=== PATIENT | female | born 1995 | race American Indian/Alaskan Native ===

== ENCOUNTER 2016-12-21 15:22 | Emergency (ER) | payer SELFPAY ==
--- NOTE | 2016-12-21 16:32 | Emergency Department Report ---
Entered by SHELLEY REYES, acting as scribe for ALEJO HILLIARD PA. Chief Complaint: Chest Pain Stated Complaint: CHEST PAIN/PAIN WHEN INHALING Time Seen by Provider: 12/21/16 15:57 - HPI History of Present Illness: Pt c/o tight, 7/10 chest pain that began this morning. Patient states she woke with chest pain, and associated sob and headache this morning. Aggravated with deep breaths and alleviated with remaining still. Notes she has back pain with deep breaths. Denies taking any medication for pain. Denies fever, chills, nausea, and vomiting. Denies abdominal pain. LMP 12/05/2016. Denies a chance of . Denies taking control. Denies Hx of DVT, PE, asthma, and heart disease. Denies FHx of DVT and PE. Denies any recent surgery or long recent travel - ROS Review of Systems: All system are negative unless stated in HPI above. - Exam Vital Signs: Vital Signs 12/21/16 15:46 Temperature 99.4 F Pulse Rate 65 Respiratory 16 Rate Blood Pressure 115/68 O2 Sat by Pulse 100 Oximetry Physical Exam: General: well nourished, well developed, 21 year old female in no acute distress and nontoxic in appearance Lungs: Clear to auscultation bilaterally, no rhonchi, wheezes, or rales. Normal work of breathing. No use of accessory muscles Extremities: No CCE. +2 pulses. No neurovascular compromise. No lower extremity pain or swelling. No calf swelling noted. Chest/Cardiovascular: No chest wall deformity. S1-S2, regular rate, regular rhythm. No murmurs. MSE screening note: Focused history and physical exam performed. Due to findings the following was ordered: see below ED Medical Decision Making - Medical Decision Making MDM: Patient screened by provider in triage area. Appropriate protocol initiated. Patient to be seen by MD on main ED side. ED Disposition for MSE Condition: Stable This documentation as recorded by the scribe,SHELLEY REYES,accurately reflects the service I personally performed and the decisions made by ,ALEJO HILLIARD PA.
[2016-12-21 16:57] LABS: Eosinophils % (Auto) 1.3 % (0.0-4.3); Hematocrit 35.2 % (30.3-42.9); Hemoglobin 11.8 gm/dl (10.1-14.3); Mean Corpuscular HGB Conc 33 % (30-34); Mean Corpuscular Volume 76 fl (79-97); Platelet Count 205 K/mm3 (140-440); Red Blood Count 4.62 M/mm3 (3.65-5.03); Red Cell Distribution Width 15.4 % (13.2-15.2); White Blood Count 9.6 K/mm3 (4.5-11.0)
[2016-12-21 16:58] LABS: Mean Corpuscular Hemoglobin 25 pg (28-32)
[2016-12-21 17:07] LABS: Anion Gap 16 mmol/L; BUN/Creatinine Ratio 18.57; Blood Urea Nitrogen 13 mg/dL (7-17); Calcium 9.3 mg/dL (8.4-10.2); Carbon Dioxide 26 mmol/L (22-30); Chloride 102.7 mmol/L (98-107); Glucose 87 mg/dL (65-100); INR 1.01 (0.87-1.13); Potassium 3.9 mmol/L (3.6-5.0); Sodium 141 mmol/L (137-145)
[2016-12-21 17:08] LABS: Partial Thromboplastin Time 25.1 Sec. (24.2-36.6)
--- NOTE | 2016-12-21 18:26 | Emergency Department Report ---
ED Chest Pain HPI - General Chief Complaint: Chest Pain Stated Complaint: CHEST PAIN/PAIN WHEN INHALING Time Seen by Provider: 12/21/16 18:17 Source: patient Mode of arrival: Ambulatory Limitations: No Limitations - History of Present Illness MD Complaint: chest pain -: Gradual, week(s) Onset: other (when she take a deep breath) Severity: mild Quality: sharp Worsens With: inspiration re: denies: nausea, vomting Other Symptoms: denies: syncope - Related Data Previous Rx's Medication Instructions Recorded Last Taken Type Naproxen [Naprosyn] 500 mg PO BID #14 tablet 12/21/16 Unknown Rx Allergies Allergy/AdvReac Type Severity Reaction Status Date / Time Penicillins AdvReac Rash Verified 12/21/16 15:56 Heart Score - HEART Score History: Slightly suspicious EKG: Non-specific Age: < 45 Risk factors: No known risk factors Troponin: < normal limit HEART Score: 1 - Critical Actions Critical Actions: 0-3 pts:0.9-1.7%risk of adverse cardiac event.Candidate for discharge ED Review of Systems ROS: Stated complaint: CHEST PAIN/PAIN WHEN INHALING Other details as noted in HPI Comment: All other systems reviewed and negative Constitutional: denies: chills, fever Respiratory: denies: cough, shortness of breath, SOB with exertion, wheezing Cardiovascular: chest pain. denies: palpitations Gastrointestinal: denies: abdominal pain, nausea, vomiting ED Past Medical Hx - Past Medical History Previous Medical History?: No - Surgical History Past Surgical History?: No - Social History Smoking Status: Never Smoker Substance Use Type: Alcohol, Marijuana - Medications Home Medications: Home Medications Medication Instructions Recorded Confirmed Last Taken Type Naproxen [Naprosyn] 500 mg PO BID #14 tablet 12/21/16 Unknown Rx ED Physical Exam - General Limitations: No Limitations General appearance: alert, in no apparent distress - Neck Neck exam: Present: normal inspection. Absent: tenderness - Respiratory Respiratory exam: Present: normal lung sounds bilaterally. Absent: respiratory distress, wheezes, rales, rhonchi, stridor, chest wall tenderness, decreased breath sounds, prolonged expiratory - Cardiovascular Cardiovascular Exam: Present: regular rate, normal rhythm, normal heart sounds. Absent: bradycardia, tachycardia - GI/Abdominal GI/Abdominal exam: Present: soft. Absent: distended, tenderness, guarding - Neurological Exam Neurological exam: Present: alert, oriented X3, CN II-XII intact - Skin Skin exam: Present: warm, intact ED Course Vital Signs 12/21/16 15:46 Temperature 99.4 F Pulse Rate 65 Respiratory 16 Rate Blood Pressure 115/68 O2 Sat by Pulse 100 Oximetry ED Medical Decision Making - Lab Data Result diagrams: 12/21/16 16:35 12/21/16 16:35 Critical care attestation.: If time is entered above; I have spent that time in minutes in the direct care of this critically ill patient, excluding procedure time. ED Disposition Clinical Impression: Atypical chest pain, Pleurisy, Chest pain, atypical Disposition: DC-01 TO HOME OR SELFCARE Is pt being admited?: No Does the pt Need Aspirin: No Condition: Stable Instructions: Chest Pain (ED), Pleurisy (ED) Prescriptions: Naproxen [Naprosyn] 500 mg PO BID #14 tablet Referrals: PRIMARY CARE, [Primary Care Provider] - 3-5 Days
[2016-12-21 18:36] VITALS: BP 112/68
--- NOTE | 2016-12-22 08:01 | XRay Report ---
CHEST TWO VIEWS: 12/21/16 17:13 CLINICAL: Chest pain and shortness of breath. COMPARISON: None FINDINGS: Normal heart and pulmonary vasculature. The lungs are normally expanded and clear. The bones and soft tissues are normal. IMPRESSION: Normal chest.
== END 2016-12-21 18:37 | disposition home or self-care (01) ==
LOC: ED 15:22
DX: R07.89 Other chest pain (principal); R09.1 Pleurisy; F12.10 Cannabis abuse, uncomplicated
CPT/HCPCS: 36415; 71020; 80048; 84484; 84703; 85025; 85610; 85730; 93005; 93010